=== PATIENT | male | born 2000 | race Asian ===

== ENCOUNTER → 2019-11-22 | Outpatient (CLI) | payer OTHER | LOC: COL.RAD 07:05 | DX: M25.562 Pain in left knee (principal) ==

== ENCOUNTER → 2024-03-13 | Outpatient (CLI) | payer OTHER ==
[~2024-03-13] MED LIST: Albuterol 0.083% Neb Soln 2.5 MG/3 ML UD IH ONE
== END ==
LOC: COL.CARD 10:40
DX: Z87.01 Personal history of pneumonia (recurrent) (principal)